=== PATIENT | female | born 2000 | race African-American/Black ===

== ENCOUNTER 2023-02-10 20:27 | Observation (INO) | payer BC, SELFPAY ==
[2023-02-10 20:48] VITALS: BP 131/81; PULSE 99
[2023-02-10 20:49] VITALS: TEMP 35.7
[2023-02-10 21:34] LABS: Bilirubin Urine NEGATIVE (NEGATIVE); Blood Urine SMALL (NEGATIVE); Clarity Urine CLEAR (CLEAR); Color Urine YELLOW (YELLOW); Glucose Urine UA NEGATIVE (NEGATIVE); Ketones Urine TRACE mg/dL (NEGATIVE); Leukocyte Esterase Urine NEGATIVE (NEGATIVE); Nitrite Urine NEGATIVE (NEGATIVE); Protein Urine TRACE mg/dL (NEG/TRACE); Specific Gravity Urine 1.025 (1.005-1.025); Urobilinogen Urine 0.2 EU/dL (0.2-1.0); pH Urine 6.5 (5.0-9.0)
[2023-02-10 21:42] LABS: Urine Microscopic Indicated YES
[2023-02-10 21:45] LABS: Bacteria Urine TRACE #/HPF (NONE SEEN); Mucus Urine NONE SEEN (NONE SEEN); RBC Urine 0-2 #/HPF (0-2); Squamous Epithelial Cell Urine FEW #/LPF (NONE/RARE); WBC Urine NONE SEEN #/HPF (NONE SEEN)
[2023-02-10 21:46] LABS: Calcium Oxalate Crystals Urine MODERATE; Cast Seen? NONE SEEN #/LPF (NONE SEEN); Crystals Seen? Seen #/HPF (None Seen)
[2023-02-10 21:47] LABS: Urine Culture Indicated NO
== END 2023-02-10 22:47 | disposition home or self-care (01) ==
PROVIDERS: Admitting Provider Obstetrics & Gynecology; PCP Family Medicine; Visit Provider Obstetrics & Gynecology
DX: O36.8190 Decreased fetal movements, unspecified trimester, not applicable or unspecified (principal); O46.90 Antepartum hemorrhage, unspecified, unspecified trimester; Z3A.00 Weeks of gestation of pregnancy not specified
CPT/HCPCS: 59025; 81003; 81015; G0378; G0379

== ENCOUNTER 2023-03-04 17:13 | Observation (INO) | payer BC, SELFPAY ==
[2023-03-04] VITALS (14 sets, daily range): BP systolic 120–152; BP diastolic 58–80; PULSE 86–101; TEMP 36.6
[2023-03-04 18:37] LABS: Hematocrit 31.9 % (36.0-48.0); Hemoglobin 10.5 g/dL (12.0-16.0); Mean Corpuscular HGB Conc 32.9 g/dL (29.9-35.2); Mean Corpuscular Hemoglobin 27.1 pg (26.7-34.0); Mean Corpuscular Volume 82.2 fL (81.0-99.0); Mean Platelet Volume 9.9 fL (9.5-13.5); Platelet Count 352 10^3/uL (150-450); Red Blood Count 3.88 10^6/uL (4.20-5.40); Red Cell Distribution Width 14.6 % (11.0-15.0); White Blood Count 11.3 10^3/uL (4.0-11.0)
[2023-03-04] MEDS: DINOPROSTONE 10 MG VAG INSERT.ER VAGINAL (18:46)
[2023-03-04 18:49] LABS: Creatinine Urine Random 71.63 mg/dL (20.00-300.00); Protein Creatinine Ratio Urine 0.24; Total Protein Urine Random 17.3 mg/dL (<=11.9)
[2023-03-04 18:50] LABS: Alanine Aminotransferase 14 U/L (14-59); Albumin Globulin Ratio 0.6; Albumin Level 2.6 g/dL (3.4-5.0); Alkaline Phosphatase 156 U/L (46-116); Anion Gap 14.6; Aspartate Amino Transferase 15 U/L (15-37); BUN Creatinine Ratio 6.2; Bilirubin Total 0.3 mg/dL (0.2-1.0); Carbon Dioxide 20.8 mmol/L (21.0-32.0); Chloride 105 mmol/L (98-107); Estimated GFR (African America >60 (>=60); Estimated GFR (Non-African Ame >60 (>=60); Globulin 4.1 g/dL; Glucose 93 mg/dL (74-106); Lactate Dehydrogenase 169 U/L (81-234); Potassium 3.4 mmol/L (3.5-5.1); Sodium 137 mmol/L (136-145); Total Protein 6.7 g/dL (6.4-8.2); Uric Acid 4.4 mg/dL (2.6-6.0)
[2023-03-04 18:54] LABS: Amphetamine Screen Urine NEGATIVE (NEGATIVE); Barbiturates Screen Urine NEGATIVE (NEGATIVE); Benzodiazepines Screen Urine NEGATIVE (NEGATIVE); Buprenorphine Screen Urine NEGATIVE (NEGATIVE); Cannabinoid Screen Urine NEGATIVE (NEGATIVE); Cocaine Screen Urine NEGATIVE (NEGATIVE); Methadone Screen Urine NEGATIVE (NEGATIVE); Methamphetamines Screen Urine NEGATIVE (NEGATIVE); Opiate Screen Urine NEGATIVE (NEGATIVE); Oxycodone Screen Urine NEGATIVE (NEGATIVE); Phencyclidine Screen Urine NEGATIVE (NEGATIVE); Tricyclic Antidepressant Urine NEGATIVE (NEGATIVE)
--- NOTE | 2023-03-04 19:29 | PC.NURSE ---
IV attempt x2 per this RN without success. Smita Peterson in attempts IV x2 as well without success. Iv to right arm achieved on 3rd attempt, Labs attempted to be drawn off site without success. Lab in for lab draw. 1851-cervidil explained verbalizes understanding. placed as ordered. cervix cl thick, high. Pt toleraes well. Pt reports pain to IV site requests d/c. Pt also c/o BOYER, requests tylenol. 1856-Sofia Bal called, no answer. Voicemail left to return call to [facility]. 1899-Report to Lianet WESTON . Care relinquished.
[2023-03-04] MEDS: ACETAMINOPHEN 500 MG TABLET 1000 MG PO (21:40)
[2023-03-04] MEDS: ZOLPIDEM TARTRATE 5 MG TABLET PO (21:40)
[2023-03-05] VITALS (23 sets, daily range): BP systolic 104–149; BP diastolic 56–94; PULSE 85–104; RESP 18–20; TEMP 36.6–37.9
--- NOTE | 2023-03-05 07:09 | W.PC.ACHO ---
Registration Status: ADM IN Primary Language: Thai Preferred Language: Thai Active Medications Generic Name Dose Route Start Last Admin Trade Name Dorothy PRN Reason Stop Dose Admin Acetaminophen 1,000 mg 03/04/23 20:56 03/04/23 21:40 Acetaminophen 500 Mg Tablet PO 1,000 mg Q6H PRN Administration Headache Carboprost Tromethamine 250 mcg 03/04/23 17:17 Carboprost Tromethamine 250 Mcg/Ml 1 Ml Vial IM Q15M PRN Bleeding Sodium Chloride 1,000 mls @ 125 mls/hr 03/05/23 04:45 Sodium Chloride 0.9% 1,000 Ml IV .Q8H HARISH Oxytocin 10 unit/ Sodium 501 mls @ 6.012 mls/hr 03/05/23 04:45 Chloride IV Q24H HARISH 2 MILLIUNIT/MIN Methylergonovine Maleate 0.2 mg 03/04/23 17:17 Methylergonovine Maleate 0.2 Mg Tablet PO Q4H PRN Uterine Contractility/Contract Methylergonovine Maleate 0.2 mg 03/04/23 17:17 Methylergonovine Maleate 0.2 Mg/Ml Ampule IM ONCE PRN Uterine Contractility/Contract Ondansetron HCl 4 mg 03/04/23 17:17 Ondansetron Pf 4 Mg/2 Ml Vial IV Q6H PRN Nausea And Vomiting Ondansetron HCl 4 mg 03/04/23 17:17 Ondansetron 4 Mg Rapdis Tablet SL Q6H PRN Nausea And Vomiting Oxytocin 10 unit 03/05/23 04:42 Oxytocin 100 Unit/10 Ml Vial IM ONCE PRN Uterine Bleeding Zolpidem Tartrate 5 mg 03/04/23 20:58 03/04/23 21:40 Zolpidem Tartrate 5 Mg Tablet PO 5 mg BEDTIME PRN Administration Insomnia Diet Category Date Time Status Regular Consistency Diet Diet 03/04/23 Dinner Active IV Insertion/Site Date of IV Line Insertion [20g 03/04/23 right Hand] Date of IV Line Insertion [20g 03/04/23 ] IV Insertion Time [20g right 19:42 Hand] Neurology Patient orientation (short person,place,time,situation list)
[2023-03-05] MEDS: DINOPROSTONE 10 MG VAG INSERT.ER VAGINAL (07:26)
--- NOTE | 2023-03-05 08:04 | PM.OBHP ---
OB - H&P: HPI History of Present Illness Chief complaint: INDUCTION : 1 Para: 0 Gestational age based on last menstrual period: 40 weeks today Indications for induction: other Narrative: patient desires elective IOL History of Present Dating criteria: LMP confirmed by 1st trimester US care: good care Ultrasounds: normal 1st trimester US and normal mid trimester US Medical complications OB: other (history of migraines, failed 1 hr gtt passed 3 hr gtt ) Labs Blood type: A (-) negative Rubella: immune RPR/VDLR: nonreactive GBS status: negative HBsAG: negative Review of Systems ROS Status of ROS 10 or more systems reviewed and unremarkable except as noted in history and below Psychiatric Reports: anxiety Meds Home Medications and Allergies Allergies Allergy/AdvReac Type Severity Reaction Status Date / Time cefdinir Allergy Intermediate Rash Verified 03/04/23 18:46 Exam Constitutional Vital Signs, click to edit/add: Last Vital Signs Temp 97.9 F 03/04/23 17:45 Pulse 89 03/05/23 07:47 BP 131/75 H 03/05/23 07:47 Documenting provider has reviewed patient's vital signs: yes Common normals: no apparent distress General appearance: cooperative Nutritional appearance: overweight Orientation/consciousness: Yes awake Respiratory Common normals: normal respiratory effort Effort & inspection: able to speak in complete sentences Auscultation: clear to auscultation bilaterally Cardio Common normals: regular rate and regular rhythm Rhythm: regular rhythm GI Common normals: Normal to inspection, nondistended, normoactive bowel sounds present Inspection: normal to inspection Auscultation: normoactive bowel sounds Palpation: soft Common normals: no CVA tenderness Manual OB Exam: deferred Back & Pelvis Common normals: no CVA tenderness Thoracic spine/upper back: normal to inspection Lumbar spine/lower back: normal to inspection Extremity Common normals: normal to inspection Neuro Common normals: oriented x3 Sensorium/orientation: awake, alert, oriented to person, oriented to place and oriented to time Speech: speech normal Psych Common normals: mental status grossly normal, thought process normal, cooperative and affect normal Attitude: calm Activity/motor behavior: appropriate eye contact Speech: normal speech Results Labs Labs: Short CBC 03/04/23 Range/Units 18:25 WBC 11.3 H (4.0-11.0) 10^3/uL Hgb 10.5 L (12.0-16.0) g/dL Hct 31.9 L (36.0-48.0) % Plt Count 352 (150-450) 10^3/uL BMP 03/04/23 18:25 Sodium 137 Potassium 3.4 L Chloride 105 Carbon Dioxide 20.8 L BUN 4.0 L Creatinine 0.65 Glucose 93 Calcium 9.0 Liver Function 03/04/23 Range/Units 18:25 Total Bilirubin 0.3 (0.2-1.0) mg/dL AST 15 (15-37) U/L ALT 14 (14-59) U/L Alkaline Phosphatase 156 H (46-116) U/L Albumin 2.6 L (3.4-5.0) g/dL OB - A/P Assessment and Plan (1) Term : Plan continue cervidil induction, routine labor orders
[2023-03-05] MEDS: ACETAMINOPHEN 500 MG TABLET 1000 MG PO (15:48)
--- NOTE | 2023-03-05 17:30 | PC.NURSE ---
Legal Records Manager discussed plan of care with pt. Much support given and education regarding pt. not being responsive to Cervidil and her body just not being quite ready, as well as well being and comfort measures for the upcoming days. Pt. knows when to return to hospital and educated on kick counts.
--- NOTE | 2023-03-05 17:35 | PC.NURSE ---
Pt. was an inpatient induction, however failed and is being sent home.
== END 2023-03-05 16:00 | disposition home or self-care (01) ==
PROVIDERS: Admitting Provider Midwife; PCP Family Medicine; Visit Provider Midwife
DX: O61.0 Failed medical induction of labor (principal); Z3A.40 40 weeks gestation of pregnancy
CPT/HCPCS: 36415; 80053; 80307; 82570; 83615; 84156; 84550; 85027; 86850; 86900; 86901; G0378; G0379

== ENCOUNTER 2023-03-08 05:26 | Inpatient (IN) | payer BC, SELFPAY ==
[2023-03-08] VITALS (21 sets, daily range): BP systolic 106–147; BP diastolic 50–96; PULSE 77–101; RESP 15–22; TEMP 36.3–36.6; O2SAT 95–98
[2023-03-08 06:10] LABS: Basophils Percent Auto 0.2 % (0.2-2.0); Eosinophils Percent Auto 0.3 % (0.9-7.0); Hematocrit 31.8 % (36.0-48.0); Hemoglobin 10.4 g/dL (12.0-16.0); Immature Granulocytes Abs Auto 0.08 10^3/uL (0.00-0.03); Immature Granulocytes Pct Auto 0.8 % (0.0-0.5); Lymphocytes Absolute Auto 2.5 10^3/uL (1.2-3.8); Lymphocytes Percent Auto 24.1 % (20.5-60.0); Mean Corpuscular HGB Conc 32.7 g/dL (29.9-35.2); Mean Corpuscular Hemoglobin 26.9 pg (26.7-34.0); Mean Corpuscular Volume 82.4 fL (81.0-99.0); Monocytes Absolute Auto 0.8 10^3/uL (0.3-0.8); Monocytes Percent Auto 7.8 % (1.7-12.0); Neutrophils Percent Auto 66.8 % (43.0-75.0); Platelet Count 371 10^3/uL (150-450); Red Blood Count 3.86 10^6/uL (4.20-5.40); Red Cell Distribution Width 14.6 % (11.0-15.0); White Blood Count 10.5 10^3/uL (4.0-11.0)
[2023-03-08 06:56] LABS: Bilirubin Urine NEGATIVE (NEGATIVE); Blood Urine SMALL (NEGATIVE); Clarity Urine CLEAR (CLEAR); Color Urine LT. YELLOW (YELLOW); Glucose Urine UA NEGATIVE (NEGATIVE); Ketones Urine >=80 mg/dL (NEGATIVE); Leukocyte Esterase Urine NEGATIVE (NEGATIVE); Nitrite Urine NEGATIVE (NEGATIVE); Protein Urine NEGATIVE (NEG/TRACE); pH Urine 6.5 (5.0-9.0)
[2023-03-08 07:15] LABS: Amphetamine Screen Urine NEGATIVE (NEGATIVE); Barbiturates Screen Urine NEGATIVE (NEGATIVE); Benzodiazepines Screen Urine NEGATIVE (NEGATIVE); Buprenorphine Screen Urine NEGATIVE (NEGATIVE); Cannabinoid Screen Urine NEGATIVE (NEGATIVE); Cocaine Screen Urine NEGATIVE (NEGATIVE); Methadone Screen Urine NEGATIVE (NEGATIVE); Methamphetamines Screen Urine NEGATIVE (NEGATIVE); Opiate Screen Urine NEGATIVE (NEGATIVE); Oxycodone Screen Urine NEGATIVE (NEGATIVE); Phencyclidine Screen Urine NEGATIVE (NEGATIVE); Tricyclic Antidepressant Urine NEGATIVE (NEGATIVE)
[2023-03-08] MEDS: LACTATED RINGER'S SOLUTION 1,000 ML 125 ML IV ×2 (07:19→08:15)
[2023-03-08] MEDS: CLINDAMYCIN PHOSPHATE/D5W 900 MG/50 ML PIGGYBACK 100 MG IV (07:22)
[2023-03-08 07:25] LABS: WBC Urine NONE SEEN #/HPF (NONE SEEN)
[2023-03-08 07:26] LABS: Bacteria Urine NONE SEEN #/HPF (NONE SEEN); Mucus Urine SMALL (NONE SEEN); Squamous Epithelial Cell Urine FEW #/LPF (NONE/RARE)
--- NOTE | 2023-03-08 07:26 | P.OBHP_ITS ---
OB - H&P: HPI History of Present Illness Chief complaint: C SECTION : 1 Para: 0 Gestational age based on last menstrual period: 40.3 History of Present Dating criteria: LMP confirmed by 1st trimester US care: good care Ultrasounds: normal 1st trimester US and normal mid trimester US complications: other Medical complications OB: none Labs Blood type: A (+) positive Rubella: immune RPR/VDLR: nonreactive GBS status: negative HBsAG: negative Review of Systems ROS Status of ROS 10 or more systems reviewed and unremarkable except as noted in history and below PFSH PFSH Family History (Updated 03/08/23 @ 05:45 by Eric Simms) Mother Family history of diabetes mellitus Grandmother Family history of diabetes mellitus Social History (Updated 03/08/23 @ 05:50 by Eric Simms) Within the past year, how often did you have a drink containing alcohol: never Within the past year, how often did you have six or more drinks on one occasion: never Score interpretation: A score less than 3 is consistent with normal alcohol consumption. 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 Highest level of school completed/degree received: some college, no degree Are you now , , , , never or living with a partner: never In a typical week, how many times do you talk on the telephone with family, friends, or neighbors: 3 or more times per week How often do you get together with friends or relatives: 3 or more times per week How often do you attend taoist or jainism services: never Do you belong to any clubs or organizations such as taoist groups unions, fraternal or athletic groups, or school groups: no Total score: 1 Score interpretation: A score of less than or equal to 1 indicates the most socially isolated. Little interest or pleasure in doing things: not at all Feeling down, depressed, or hopeless: not at all Feel stressed/tense/nervous/anxious/difficulty sleeping: to some extent Life stressors: other Life stressor details: c/s delivery Do you think of yourself as: lesbian/harrington/homosexual Gender Identity: female Meds Home Medications and Allergies Home Medications Medication Instructions Recorded Confirmed Type No Known Home Medications 03/06/23 03/08/23 History Allergies Allergy/AdvReac Type Severity Reaction Status Date / Time cefdinir Allergy Intermediate Rash Verified 03/04/23 18:46 Exam Constitutional Vital Signs, click to edit/add: Last Vital Signs Temp 97.7 F 03/08/23 05:42 Pulse 96 H 03/08/23 06:13 Resp 18 03/08/23 05:42 BP 136/78 H 03/08/23 06:13 Documenting provider has reviewed patient's vital signs: yes Common normals: no apparent distress General appearance: cooperative and comfortable Orientation/consciousness: Yes awake HENMT Common normals: normocephalic Eye Common normals: PERRL General eye: normal appearance of both eyes Lymph Lymphatic: no lymphadenopathy noted Chest Common normals: inspection of chest normal Respiratory Common normals: normal respiratory effort Effort & inspection: able to speak in complete sentences Cardio Common normals: regular rate, regular rhythm and no murmurs Rate: regular rate Rhythm: regular rhythm GI Inspection: normal to inspection Auscultation: normoactive bowel sounds Palpation: soft and other (gravid uterus ) Common normals: no CVA tenderness Back & Pelvis Common normals: no CVA tenderness Neuro Common normals: oriented x3 Sensorium/orientation: awake, alert, oriented to person, oriented to place and oriented to time Results Labs Labs: Short CBC 03/08/23 Range/Units 06:00 WBC 10.5 (4.0-11.0) 10^3/uL Hgb 10.4 L (12.0-16.0) g/dL Hct 31.8 L (36.0-48.0) % Plt Count 371 (150-450) 10^3/uL Urine 03/08/23 Range/Units 06:00 Urine Color Lt. yellow (YELLOW) Urine Clarity Clear (CLEAR) Urine pH 6.5 (5.0-9.0) Ur Specific [place] 1.020 (1.005-1.025) Urine Protein Negative (NEG/TRACE) mg/dL Urine Glucose (UA) Negative (NEGATIVE) mg/dL OB - A/P Assessment and Plan (1) Term : Plan elective primary section
[2023-03-08 07:27] LABS: Amorphous Sediment Urine FEW; Crystals Seen? Seen #/HPF (None Seen)
[2023-03-08] MEDS: ONDANSETRON PF 4 MG/2 ML VIAL IV (07:28)
[2023-03-08] MEDS: FAMOTIDINE/PF 20 MG/2 ML VIAL IV (07:28)
--- NOTE | 2023-03-08 07:38 | W.PC.ACHO ---
Registration Status: ADM IN Primary Language: Malaysian Preferred Language: Malaysian Active Medications Generic Name Dose Route Start Last Admin Trade Name Freq PRN Reason Stop Dose Admin Lactated Ringer's 1,000 mls @ 125 mls/hr 03/08/23 05:30 03/08/23 07:19 Lactated Ringers IV 125 mls/hr .Q8H HARISH Administration Ondansetron HCl 4 mg 03/08/23 07:24 03/08/23 07:28 Ondansetron Pf 4 Mg/2 Ml Vial IV 4 mg Q4H PRN Administration Nausea And Vomiting Diet Category Date Time Status NPO Diet Diet 03/08/23 05:29 Active Consults Category Date Time Status Consult to Anesthesiology Routine Cons 03/08/23 Ordered IV Insertion/Site Date of IV Line Insertion [20g 03/08/23 right Hand] IV Insertion Time [20g right 06:00 Hand] Neurology Patient orientation (short person,place,time,situation list) [place] coma scale total score 15 Catheter Urinary Catheter Date of 03/08/23 Insertion [Urethral] Urinary Catheter Time of 06:35 Insertion [Urethral]
--- NOTE | 2023-03-08 08:47 | P.ON_ITS ---
Brief Operative Note Date of procedure: 03/08/23 Pre-op diagnosis: iup at 40wks, failed induction times 2, pt requesting elective sec Post-op diagnosis: same Procedure: PROCEDURE: Patient was taken back to the Operating Room where she was given a spinal anesthesia with Duramorph without difficulty. She was prepped and draped in the normal sterile fashion. A Pfannenstiel skin incision was then made 2 cm above the symphysis pubis and carried down to underlying rectus fascia using a Bovie. The fascia was incised in the midline and extended laterally using Padilla scissors. Two Kareem clamps were placed on the superior aspect of the fascia and dissected off the underlying rectus muscles. The same was performed on the inferior aspect as well. The muscles were then in the midline. Peritoneum was identified and entered bluntly. The peritoneum was then extended superiorly and inferiorly with good visualization of the bladder. The bladder blade was inserted. A low transverse incision was made on the patient's uterus and extended laterally digitally. The infant was then delivered atraumatically after the bladder blade was removed in the cephalic position. The cord was clamped and cut. Cord blood was obtained. The was handed off to awaiting team. The patient's placenta was spontaneously delivered. The uterus was then exteriorized. The uterus was cleared of all clots and debris. The bladder blade was reinserted. The patient's uterine incision was closed using #0 Vicryl in a running lock fashion. Excellent hemostasis was assured. The uterus was then returned to the patient's abdomen. The patient's abdomen was copiously irrigated using warm saline. Peritoneal gutters were cleared of all clots and debris. Again excellent hemostasis was assured. The patient's peritoneum was closed using 3-0 Vicryl in a running fashion. The patient's fascia was closed using #0 Vicryl in a running fashion. The patient's skin was closed using 4-0 Vicryl subcuticularly. The patient tolerated the procedure well. Sponge, lap, and needle counts were correct x2. The patient was taken to the Recovery Room in stable condition. Anesthesia: spinal Surgeon: Umesh Maya Planning Management It Specialist: ERIN SHIELDS Estimated blood loss (mL): 575 Pathology: other (placeta) Condition: stable Disposition: floor
--- NOTE | 2023-03-08 08:49 | PM.OBPRCCS ---
Procedure Pre-op/Post-op diagnoses: Pre-Op/Post-Op Diagnoses Operation Date: 03/08/23 07:30 <No data on this case meets the specified criteria> Procedure: Procedures Operation Date: 03/08/23 07:30 Actual Procedure Side Surgeon p Not Applicable Umesh Maya DO [employer] Science Teacher: ERIN SHIELDS Estimated blood loss (mL): 575 Disposition: floor Anesthesia type: Spinal
--- NOTE | 2023-03-08 09:11 | PM.OBPRCCS ---
Procedure Pre-op/Post-op diagnoses: Pre-Op/Post-Op Diagnoses Operation Date: 03/08/23 07:30 <No data on this case meets the specified criteria> Procedure: Procedures Operation Date: 03/08/23 07:30 Actual Procedure Side Surgeon p Not Applicable Umesh Maya DO Disposition: floor Narrative: I first assisted Dr Maya with elective primary section. I assisted as directed by physician. I independently closed the SQ layer with 3-0 vicryl without difficulty. I then independently closed the incision with 4-0 vicryl on a Edgardo needle without difficulty. Hemostasis noted at the end of the procedure. Patient tolerated procedure well.
--- NOTE | 2023-03-08 09:15 | PC.NURSE ---
125CC CLEAR YELLOW URINE
--- NOTE | 2023-03-08 10:25 | PC.NURSE ---
infant remains skin to skin, pt denies pain , fresh ice water given and juice
--- NOTE | 2023-03-08 10:26 | PC.NURSE ---
feeds infant bottle. denies pain or needs
[2023-03-08] MEDS: DIPHENHYDRAMINE HCL 50 MG/ML (1ML) VIAL 25 MG IV (11:33)
--- NOTE | 2023-03-08 15:19 | PC.NURSE ---
pt request ambulation. Assisted up to BR, maki explained and performed per self. Moderate amount of rubra noted. Loo remains in, emptied for approx 300mls cali urine. pt requests to sit in chair. Assisted to chair and tolerates well. denies pain or needs at this time.
[2023-03-08] MEDS: DIPHENHYDRAMINE HCL 50 MG/ML (1ML) VIAL (17:19)
[2023-03-08] MEDS: CLINDAMYCIN PHOSPHATE/D5W 900 MG/50 ML PIGGYBACK 125 MG IV (17:25)
--- NOTE | 2023-03-08 18:51 | PC.NURSE ---
approx 200mls emptied from riddle, then d/c'd per pt request. pt tolerates well, pericare per self and returns to bed.
[2023-03-08] MEDS: KETOROLAC TROMETHAMINE 30 MG/ML VIAL IVP (19:06)
[2023-03-08] MEDS: ENOXAPARIN SODIUM 40 MG/0.4 ML SYRINGE SUBQ (20:59)
[2023-03-09] VITALS (7 sets, daily range): BP systolic 122–147; BP diastolic 62–93; PULSE 84–87; RESP 18; TEMP 36.2–36.8
[2023-03-09] MEDS: SIMETHICONE 80 MG TAB.CHEW PO ×2 (01:07→07:28)
[2023-03-09] MEDS: KETOROLAC TROMETHAMINE 30 MG/ML VIAL IVP ×4 (01:08→20:21)
[2023-03-09 06:40] LABS: Basophils Percent Auto 0.1 % (0.2-2.0); Eosinophils Percent Auto 0.1 % (0.9-7.0); Hematocrit 25.8 % (36.0-48.0); Hemoglobin 8.4 g/dL (12.0-16.0); Immature Granulocytes Abs Auto 0.08 10^3/uL (0.00-0.03); Immature Granulocytes Pct Auto 0.6 % (0.0-0.5); Lymphocytes Absolute Auto 2.8 10^3/uL (1.2-3.8); Lymphocytes Percent Auto 19.8 % (20.5-60.0); Mean Corpuscular HGB Conc 32.6 g/dL (29.9-35.2); Mean Corpuscular Hemoglobin 27.5 pg (26.7-34.0); Mean Corpuscular Volume 84.3 fL (81.0-99.0); Mean Platelet Volume 10.1 fL (9.5-13.5); Monocytes Absolute Auto 1.1 10^3/uL (0.3-0.8); Monocytes Percent Auto 7.6 % (1.7-12.0); Neutrophils Absolute Auto 10.2 10^3/uL (1.4-6.5); Neutrophils Percent Auto 71.8 % (43.0-75.0); Platelet Count 339 10^3/uL (150-450); Red Blood Count 3.06 10^6/uL (4.20-5.40); Red Cell Distribution Width 14.8 % (11.0-15.0); White Blood Count 14.3 10^3/uL (4.0-11.0)
--- NOTE | 2023-03-09 07:50 | W.PC.ACHO ---
Registration Status: ADM IN Primary Language: New Zealander Preferred Language: New Zealander report given to Jamilah Mendoza RN Active Medications Generic Name Dose Route Start Last Admin Trade Name Freq PRN Reason Stop Dose Admin Al Hydroxide/Mg Hydroxide 2,400 mg 03/08/23 08:45 Magnesium Hydroxide 2,400 Mg/10 Ml Oral.Susp PO Q6H PRN Dyspepsia Diphenhydramine HCl 25 mg 03/08/23 17:33 Diphenhydramine Hcl 50 Mg/Ml (1ml) Vial IV 03/09/23 17:33 Q6H PRN Itching Docusate Sodium 100 mg 03/09/23 09:00 Docusate Sodium 100 Mg Capsule PO BID HARISH Enoxaparin Sodium 40 mg 03/08/23 20:01 03/08/23 20:59 Enoxaparin Sodium 40 Mg/0.4 Ml Syringe SUBQ 40 mg Q24H HARISH Administration Lactated Ringer's 1,000 mls @ 125 mls/hr 03/08/23 05:30 03/08/23 08:15 Lactated Ringers IV 125 mls/hr .Q8H HARISH Administration Sodium Chloride 1,000 mls @ 125 mls/hr 03/08/23 08:45 Sodium Chloride 0.9% 1,000 Ml IV .Q8H HARISH Ibuprofen 800 mg 03/08/23 08:45 Ibuprofen 400 Mg Tablet PO Q8H PRN Pain Ketorolac Tromethamine 30 mg 03/08/23 08:45 03/09/23 07:28 Ketorolac Tromethamine 30 Mg/Ml Vial IVP 03/10/23 08:46 30 mg Q6H PRN Administration Pain Ondansetron HCl 4 mg 03/08/23 08:45 Ondansetron Pf 4 Mg/2 Ml Vial IV Q6H PRN Nausea And Vomiting Ondansetron HCl 4 mg 03/08/23 08:45 Ondansetron 4 Mg Rapdis Tablet PO Q6H PRN Nausea And Vomiting Oxycodone/Acetaminophen 1 each 03/08/23 08:45 Oxycodone Hcl/Acetaminophen 5-325 Mg Tablet PO Q4H PRN Pain Oxycodone/Acetaminophen 2 each 03/08/23 08:45 Oxycodone Hcl/Acetaminophen 5-325 Mg Tablet PO Q4H PRN Pain Senna 17.2 mg 03/08/23 20:00 Sennosides 8.6 Mg Tablet PO QHS PRN Constipation Simethicone 80 mg 03/08/23 08:45 03/09/23 07:28 Simethicone 80 Mg Tab.Chew PO 80 mg QID PRN Administration Abdominal Distention Diet Category Date Time Status Regular Consistency Diet Diet 03/08/23 Dinner Active Respiratory Lung sounds [Bilateral clear Throughout] Lung sounds [Bilateral clear Throughout] Lung sounds [Bilateral clear Throughout] Lung sounds [Bilateral clear Throughout] Lung sounds [Bilateral clear Throughout] Lung sounds [Bilateral clear Throughout] Pulse Oximetry 95 Pulse Oximetry 95 Pulse Oximetry 96 Pulse Oximetry 97 Pulse Oximetry 97 Pulse Oximetry 97 Pulse Oximetry 98 Pulse Oximetry 96 Pulse Oximetry 97 Pulse Oximetry 97 Oxygen Delivery Method Room Air Oxygen Delivery Method Room Air Oxygen Delivery Method Room Air Oxygen Delivery Method Room Air Oxygen Delivery Method Room Air
--- NOTE | 2023-03-09 09:31 | PM.OBPN ---
OB - PN: Subj Subjective Patient comments: pain well controlled and other Exam Narrative Exam Narrative: pt is 1 day post op, pp for elective section. pt c/o right shoulder pain, and states she was told it was from the gas pain you can get from surgery Constitutional Vital Signs, click to edit/add: Last Vital Signs Temp 97.2 F L 03/09/23 01:05 Pulse 77 03/08/23 20:28 Resp 18 03/09/23 01:05 BP 122/62 H 03/09/23 01:05 Pulse Ox 95 03/08/23 09:29 O2 Del Method Room Air 03/09/23 01:05 Documenting provider has reviewed patient's vital signs: yes Common normals: no apparent distress General appearance: cooperative Orientation/consciousness: Yes awake, Yes oriented to person, Yes oriented to place and Yes oriented to time Eye Pupil: PERRL Chest Common normals: inspection of chest normal Respiratory Common normals: normal respiratory effort Auscultation: clear to auscultation bilaterally Cardio Common normals: regular rate and regular rhythm Rate: regular rate Rhythm: regular rhythm GI Common normals: Normal to inspection, nondistended, normoactive bowel sounds present Percussion: normal to percussion Common normals: no CVA tenderness Back & Pelvis Common normals: no CVA tenderness Thoracic spine/upper back: normal to inspection Extremity Common normals: normal to inspection Neuro Common normals: oriented x3 Sensorium/orientation: awake, alert, oriented to person, oriented to place and oriented to time Psych Common normals: mental status grossly normal Attitude: calm Speech: normal speech Results Labs Labs: Short CBC 03/09/23 Range/Units 06:27 WBC 14.3 H (4.0-11.0) 10^3/uL Hgb 8.4 L (12.0-16.0) g/dL Hct 25.8 L (36.0-48.0) % Plt Count 339 (150-450) 10^3/uL OB - PN: A/P Assessment and Plan (1) Term : Plan continue routine post /post op orders begin Ferrous sulfate 325 mg BID Plan - day: 1 Plan: routine postop care Time Spent with Patient Time: Total time spent is greater than 50% in coordination of care (as documented) at patient's floor/unit and/or counseling patient: Total time spent with greater than 50% in coordination of care (as documented) at patient's floor/unit and/or counseling patient: less than 15 minutes
[2023-03-09] MEDS: DOCUSATE SODIUM 100 MG CAPSULE PO ×2 (10:45→20:22)
[2023-03-09] MEDS: ACETAMINOPHEN 325 MG TABLET 650 MG PO (12:19)
[2023-03-09] MEDS: FERROUS SULFATE 325 MG TABLET PO ×2 (12:59→20:22)
--- NOTE | 2023-03-09 17:25 | PC.NURSE ---
0725-Toradol given as requested, and simethacone PO as ordered for gas pain. Plan of care reviewed. verbalizes understanding 0825-Dozing in bed. Denies pain or needs. to nursery for testing. 0930- returned to room. Pt remains in bed but awake . eats breakfast. denies needs 1045- to shower per self. incision care explained after dressing removal. verbalizes understanding. 1130-visitors in. This RN inspects incision an assists pt removing abdominal dressing. smal amount of dark maroon drainage noted. Tylenol 650 mg given PO as requested and ordered for incisional pain 10/26. 1220-Toradol 30mg IV given as requested and ordered. 1335-ambulating around room, denies needs 1400- eats lunch 1535-ambulating around room, changes infants clothes and diaper 1640-requests pain medication for incisional pain 1710-Assessed as charted. Vs as charted. Incision remains clean , slightly moist. dry
[2023-03-10] MEDS: KETOROLAC TROMETHAMINE 30 MG/ML VIAL IVP (05:46)
[2023-03-10] MEDS: IBUPROFEN 400 MG TABLET 800 MG PO (09:23)
--- NOTE | 2023-03-10 09:25 | PM.OBPN ---
OB - PN: Subj Subjective Patient comments: no complaints Exam Constitutional Vital Signs, click to edit/add: Last Vital Signs Temp 98.2 F 03/09/23 22:00 Pulse 87 03/09/23 22:00 Resp 18 03/09/23 22:00 BP 138/64 H 03/09/23 22:00 Pulse Ox 95 03/08/23 09:29 O2 Del Method Room Air 03/09/23 01:05 Documenting provider has reviewed patient's vital signs: yes Common normals: no apparent distress Chest Common normals: inspection of chest normal Respiratory Common normals: normal respiratory effort and clear to auscultation bilaterally Cardio Common normals: regular rate and regular rhythm GI Common normals: Normal to inspection, nondistended, normoactive bowel sounds present Extremity Common normals: no clubbing, cyanosis or edema and no calf tenderness OB - PN: A/P Assessment and Plan (1) Term : Plan - day: 2 Plan: routine postop care, discharge home and follow up 6 weeks Time Spent with Patient Time: Total time spent is greater than 50% in coordination of care (as documented) at patient's floor/unit and/or counseling patient: Total time spent with greater than 50% in coordination of care (as documented) at patient's floor/unit and/or counseling patient: less than 15 minutes
[2023-03-10 09:43] VITALS: BP 138/63; PULSE 80
[2023-03-10] MEDS: DOCUSATE SODIUM 100 MG CAPSULE PO (09:44)
[2023-03-10] MEDS: FERROUS SULFATE 325 MG TABLET PO (09:44)
[2023-03-10 09:45] VITALS: RESP 18; TEMP 36.8
--- NOTE | 2023-03-10 09:51 | PC.NURSE ---
At 0925 technical writer and editor retrieved two briefs per pt.'s request. Pt denies any further needs. Baby was resting comfortable on mom's upper body at this time. offered to return baby back to crib pt. declined.
--- NOTE | 2023-03-10 15:56 | PC.NURSE ---
d/c instructions given at length, follow up appts , medication prescriptions given, verbalizes understaging. PT declines adacel vaccine.
--- NOTE | 2023-03-15 | DS_ITS ---
DISCHARGE DATE: ??03/15/2023 PRIMARY DIAGNOSES: 1.? Intrauterine at 40 weeks. 2.? Failed induction x2. 3.? Patient requesting elective section. PROCEDURE:? Primary low transverse section. HOSPITAL COURSE:? As expected.? Please see chart for full details.? LABORATORY DATA:? Please see chart. COMPLICATIONS:? None. DISCHARGE CONDITION: ?Stable. CONSULTATION:? Anesthesia. DISCHARGE INSTRUCTIONS: 1.? Diet:? Regular. 2.? Medications: a.? Percocet 5/325 one to two p.o. every 4-6 hours p.r.n. pain. b.? Motrin 800 one p.o. every 8 hours p.r.n. pain. 3.? Followup in one week. Restrictions:? Pelvic rest for 6 weeks.? No heavy lifting.? May drive when pain free and no longer on narcotics. JAMISON
== END 2023-03-10 13:30 | disposition home or self-care (01) | DRG 787 ==
PROVIDERS: Admitting Provider Midwife; PCP Family Medicine; Visit Provider Obstetrics & Gynecology
PROC: 10D00Z1 Extraction of Products of Conception, Low, Open Approach (ICD-10-PCS; CPT 59514; principal; 2023-03-08 07:30)
DX: O48.0 Post-term pregnancy (principal); O99.354 Diseases of the nervous system complicating childbirth; O61.0 Failed medical induction of labor; Z3A.40 40 weeks gestation of pregnancy; O99.62 Diseases of the digestive system complicating childbirth; O99.214 Obesity complicating childbirth; Z37.0 Single live birth; K21.9 Gastro-esophageal reflux disease without esophagitis; G47.33 Obstructive sleep apnea (adult) (pediatric); Z88.1 Allergy status to other antibiotic agents; Z79.899 Other long term (current) drug therapy; Z83.3 Family history of diabetes mellitus
CPT/HCPCS: 36415; 51702; 59025; 80307; 81001; 85025; 86850; 86900; 86901; 94667; 96372; 96374; 96375; 96376

== ENCOUNTER 2023-03-11 08:45 | Outpatient (RCR) | payer BC, SELFPAY ==
[2023-03-11 16:58] VITALS: BP 137/80; PULSE 86; RESP 18; TEMP 36.8; O2SAT 97
--- NOTE | 2023-03-11 17:05 | PC.NURSE ---
Pt and 3 day old daughter arrive for follow up. Denies need. States this C/S thing is no joke States doing well, but incision tender and sore today. Steri Strips intact, no drainage noted. Edema noted above incision, no redness. Pt states it smells funny This creative services writer does not note foul odor at this time. Pt given 4x4 gauze to lay in skin fold to assist in moisture wicking. Discussed daily shower, holding abdomen up for air drying and/or cool blow dryer to aid in keeping incision dry. Will see [facility] on 03/14/2023 for incision check. Pt is bottle feeding by choice. reviewed breast care and use of green cabbage for easing engorgement. Verbalized understanding.
== END 2023-03-11 17:15 | disposition home or self-care (01) ==
LOC: FBCO 08:45
PROVIDERS: PCP Family Medicine; Visit Provider Midwife
DX: Z39.2 Encounter for routine postpartum follow-up (principal)

== ENCOUNTER 2023-03-14 23:47 | Observation (INO) | payer BC, SELFPAY ==
[2023-03-14 23:57] VITALS: BP 170/98; BP 175/95; PULSE 69; RESP 16; TEMP 36.3; O2SAT 99; BMI 48.0
[2023-03-15] VITALS (30 sets, daily range): BP systolic 133–208; BP diastolic 63–106; PULSE 59–79; RESP 11–18; TEMP 36.6–36.7; O2SAT 98–100
--- NOTE | 2023-03-15 00:06 | ECG_ITS ---
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
[2023-03-15] MEDS: LABETALOL HCL 20 MG/4 ML SYRINGE IVP (00:41)
[2023-03-15 00:43] LABS: Basophils Percent Auto 0.6 % (0.2-2.0); Eosinophils Percent Auto 0.3 % (0.9-7.0); Hematocrit 26.7 % (36.0-48.0); Hemoglobin 8.6 g/dL (12.0-16.0); Immature Granulocytes Abs Auto 0.05 10^3/uL (0.00-0.03); Immature Granulocytes Pct Auto 0.8 % (0.0-0.5); Lymphocytes Absolute Auto 1.5 10^3/uL (1.2-3.8); Lymphocytes Percent Auto 24.6 % (20.5-60.0); Mean Corpuscular HGB Conc 32.2 g/dL (29.9-35.2); Mean Corpuscular Hemoglobin 27.1 pg (26.7-34.0); Mean Corpuscular Volume 84.2 fL (81.0-99.0); Mean Platelet Volume 9.6 fL (9.5-13.5); Monocytes Absolute Auto 0.5 10^3/uL (0.3-0.8); Monocytes Percent Auto 8.5 % (1.7-12.0); Neutrophils Absolute Auto 4.1 10^3/uL (1.4-6.5); Neutrophils Percent Auto 65.2 % (43.0-75.0); Platelet Count 383 10^3/uL (150-450); Red Blood Count 3.17 10^6/uL (4.20-5.40); Red Cell Distribution Width 14.9 % (11.0-15.0); White Blood Count 6.3 10^3/uL (4.0-11.0)
--- NOTE | 2023-03-15 00:56 | ED_ITS ---
HPI - General Adult General Chief complaint: Headache Stated complaint: hypertension Time Seen by Provider: 03/15/23 00:13 Source: patient Mode of arrival: walk-in History of Present Illness HPI narrative: 22-year-old female who is one week status post delivery for failure to progress presents for evaluation of a headache, visual changes, elevated blood pressure and lower extremity swelling. She was seen by her grizzly worker earlier today and started on labetalol. She has only had one dose of it prior to arrival. She denies any seizure activity. She states that in her 40th week of it was noticed that she had protein in her urine and they were monitoring her blood pressure closely. It was not noted during her delivery or . that her blood pressure was elevated. She has no chest pain or shortness of breath. She denies any abdominal pain. She is not breast-feeding. Related Data Home Medications Medication Instructions Recorded Confirmed labetalol 200 mg tablet 200 mg PO Q12H 03/15/23 03/15/23 Previous Rx's Medication Instructions Recorded ibuprofen 800 mg tablet 800 mg PO Q8H PRN pain 14 days #40 03/10/23 tabs oxycodone-acetaminophen 5 mg-325 1 tab PO Q6H PRN pain 7 days #28 03/10/23 mg tablet (Percocet) tabs Allergies Allergy/AdvReac Type Severity Reaction Status Date / Time cefdinir Allergy Intermediate Rash Verified 03/04/23 18:46 Review of Systems ROS Status of ROS 10 or more systems reviewed and unremarkable except as noted in history and below PFSH PFSH Family History (Updated 03/08/23 @ 05:45 by Eric Simms) Mother Family history of diabetes mellitus Grandmother Family history of diabetes mellitus Social History (Updated 03/08/23 @ 05:50 by Eric Simms) Within the past year, how often did you have a drink containing alcohol: never Within the past year, how often did you have six or more drinks on one occasion: never Score interpretation: A score less than 3 is consistent with normal alcohol consumption. 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[employer] Highest level of school completed/degree received: some college, no degree Are you now , , , , never or living with a partner: never In a typical week, how many times do you talk on the telephone with family, friends, or neighbors: 3 or more times per week How often do you get together with friends or relatives: 3 or more times per week How often do you attend christianity or episcopal services: never Do you belong to any clubs or organizations such as christianity groups unions, fraternal or athletic groups, or school groups: no Total score: 1 Score interpretation: A score of less than or equal to 1 indicates the most socially isolated. Little interest or pleasure in doing things: not at all Feeling down, depressed, or hopeless: not at all Feel stressed/tense/nervous/anxious/difficulty sleeping: to some extent Life stressors: other Life stressor details: c/s delivery Do you think of yourself as: lesbian/harrington/homosexual Gender Identity: female Exam Narrative Exam Narrative: Nurses note and vital signs reviewed; She is afebrile with a normal pulse, normal respiratory rate, blood pressure is notably elevated at 175/95 General: Alert, nontoxic -[place]ian female nursing currently on the stretcher, no respiratory distress Skin: Warm, dry, no pallor noted. There is no rash noted. Head: Normocephalic, atraumatic Eye: Normal conjunctiva, Funduscopic attempted but his pupils are constricted, no photophobia noted Ears, Nose, Mouth, and Throat: oral mucosa is moist. Cardiovascular: Regular Rate and Rhythm S1-S2, no murmurs rubs or gallops appreciated, pulses are brisk and equal bilaterally Respiratory: Patient is in no distress, no accessory muscle use, lungs are clear to auscultation, no wheezing, rales or rhonchi Back: non-tender, no CVA tenderness bilaterally to percussion. GI: Normal bowel sounds, no tenderness to palpation, no masses appreciated. No rebound, guarding, or rigidity noted. Musculoskeletal: 2+ lower extremity edema Neurological: A&O x4, normal speech Psychiatric: Cooperative Constitutional Vital Signs, click to edit/add: Last Vital Signs Temp 97.3 F L 03/14/23 23:57 Pulse 69 03/15/23 00:40 Resp 12 03/15/23 00:40 BP 146/100 H 03/15/23 01:31 Pulse Ox 98 03/15/23 00:40 O2 Del Method Room Air 03/14/23 23:57 Course Vital Signs Vital signs: Vital Signs Temperature 97.3 F L 03/14/23 23:57 Pulse Rate 69 03/14/23 23:57 Respiratory Rate 16 03/14/23 23:57 Blood Pressure 175/95 H 03/14/23 23:57 Pulse Oximetry 99 03/14/23 23:57 Oxygen Delivery Method Room Air 03/14/23 23:57 Temperature 97.3 F L 03/14/23 23:57 Pulse Rate 69 03/15/23 00:40 Respiratory Rate 12 03/15/23 00:40 Blood Pressure 146/100 H 03/15/23 01:31 Pulse Oximetry 98 03/15/23 00:40 Oxygen Delivery Method Room Air 03/14/23 23:57 Medical Decision Making MDM Narrative Medical decision making narrative: This 22-year-old female who is one week after a delivery for failure to progress presents for evaluation of a headache, visual changes and lower extremity swelling. She was noted to have elevated blood pressure yesterday after one week follow-up with her grizzly worker. She was started on labetalol. it was recommended that she monitor her blood pressure and her symptoms of headache visual changes and lower extremity swelling. She is brought to the emergency department by her [id number] today for elevated blood pressure and global headache. The pressure was noted to be 175/95 upon arrival. Her neuro exam is normal. She has not had any seizures. She denies any abdominal pain besides where she had her . An IV was placed and she was medicated with 20 mg of IV labetalol. Her blood pressure came down initially to 158/98. it then came down further to 146/100. Her headache and visual changes have not resolved. Routine labs are reviewed. She has a normal white count. She is mildly anemic with a hemoglobin of 8.6 however she is one week . She does not appear to have any active hemorrhaging. She has normal electrolytes. She has a mild elevation in her alkaline phosphatase at 131 but the remainder of her liver function tests are normal. Coagulation studies are normal. Urine is positive for blood but negative for protein. In light of her headache, elevated blood pressure, visual changes and edema she will be admitted for preeclampsia. The case was discussed with Dr. Maya. He will admit her to labor and delivery start her on magnesium. He did not request that I give her any additional labetalol in the emergency department or start her on magnesium here. This was discussed with the patient who verbalizes understanding. She was medicated with the Percocet and ibuprofen she was discharged home on for relief of her headache. She otherwise remains hemodynamically and neurologically stable. Lab Data Lab results narrative: Labs are reviewed, the patient has a normal white count, she is mildly anemic with a hemoglobin of 8.6. She has a normal platelet count, coagulation studies are normal, liver function tests are normal with the exception of mildly elevated alkaline phosphatase, Urine is positive for blood but negative for protein Labs: Lab Results 03/15/23 03/15/23 Range/Units 00:31 01:00 WBC 6.3 (4.0-11.0) 10^3/uL RBC 3.17 L (4.20-5.40) 10^6/uL Hgb 8.6 L (12.0-16.0) g/dL Hct 26.7 L (36.0-48.0) % MCV 84.2 (81.0-99.0) fL MCH 27.1 (26.7-34.0) pg MCHC 32.2 (29.9-35.2) g/dL RDW 14.9 (11.0-15.0) % Plt Count 383 (150-450) 10^3/uL MPV 9.6 (9.5-13.5) fL Neut % (Auto) 65.2 (43.0-75.0) % Lymph % (Auto) 24.6 (20.5-60.0) % [place] % (Auto) 8.5 (1.7-12.0) % Eos % (Auto) 0.3 L (0.9-7.0) % Baso % (Auto) 0.6 (0.2-2.0) % Neut # (Auto) 4.1 (1.4-6.5) 10^3/uL Lymph # (Auto) 1.5 (1.2-3.8) 10^3/uL [place] # (Auto) 0.5 (0.3-0.8) 10^3/uL Eos # (Auto) 0.0 (0.0-0.7) 10^3/uL Baso # (Auto) 0.0 (0.0-0.1) 10^3/uL Abs Immat Gran (auto) 0.05 H (0.00-0.03) 10^3/uL Imm/Tot Granulo (auto) 0.8 H (0.0-0.5) % PT 10.7 (9.0-11.6) sec INR 1.01 APTT 32.6 (22.3-36.2) sec Sodium 138 (136-145) mmol/L Potassium 3.7 (3.5-5.1) mmol/L Chloride 105 (98-107) mmol/L Carbon Dioxide 22.0 (21.0-32.0) mmol/L Anion Gap 14.7 BUN 16.0 (7.0-18.0) mg/dL Creatinine 0.75 (0.55-1.02) mg/dL Est GFR ( Amer) >60 (>=60) Est GFR (Non-Af Amer) >60 (>=60) BUN/Creatinine Ratio 21.3 Glucose 83 (74-106) mg/dL Calcium 7.9 L (8.5-10.1) mg/dL Total Bilirubin 0.4 (0.2-1.0) mg/dL AST 6 L (15-37) U/L ALT <6 L (14-59) U/L Alkaline Phosphatase 131 H (46-116) U/L Total Protein 6.5 (6.4-8.2) g/dL Albumin 2.8 L (3.4-5.0) g/dL Globulin 3.7 g/dL Albumin/Globulin Ratio 0.8 Urine Color Yellow (YELLOW) Urine Clarity Clear (CLEAR) Urine pH 6.0 (5.0-9.0) Ur Specific [place] 1.020 (1.005-1.025) Urine Protein Negative (NEG/TRACE) mg/dL Urine Glucose (UA) Negative (NEGATIVE) mg/dL Urine Ketones Negative (NEGATIVE) mg/dL Urine Occult Blood Moderate A (NEGATIVE) Urine Nitrite Negative (NEGATIVE) Urine Bilirubin Negative (NEGATIVE) Urine Urobilinogen 0.2 (0.2-1.0) EU/dL Ur Leukocyte Esterase Trace A (NEGATIVE) Urine RBC 2-5 A (0-2) #/HPF Urine WBC 5-10 A (NONE SEEN) #/HPF Ur Squamous Epith Cells Rare (NONE/RARE) #/LPF Urine Crystals None seen (None Seen) #/HPF Urine Bacteria Small A (NONE SEEN) #/HPF Urine Casts None seen (NONE SEEN) #/LPF Urine Mucus None seen (NONE SEEN) Ur Culture Indicated? Yes Critical Care Time Critical Care Time Total Critical Care Time: 40 Attestation: . Discharge Plan Discharge Chief Complaint: Headache Clinical Impression: Pre-eclampsia Patient Disposition: Admitted as Observation Time of Disposition Decision: 02:05 Condition: Fair Prescriptions / Home Meds: No Action ibuprofen 800 mg tablet 800 mg PO Q8H PRN (Reason: pain) 14 Days Qty: 40 0RF oxycodone-acetaminophen [Percocet] 5-325 mg tablet 1 tab PO Q6H PRN (Reason: pain) 7 Days Qty: 28 0RF labetalol 200 mg tablet 200 mg PO Q12H Referrals: Shawn Fountain MD [Primary Care Provider] - 1 week
[2023-03-15 00:59] LABS: Alanine Aminotransferase <6 U/L (14-59); Albumin Globulin Ratio 0.8; Albumin Level 2.8 g/dL (3.4-5.0); Alkaline Phosphatase 131 U/L (46-116); Anion Gap 14.7; Aspartate Amino Transferase 6 U/L (15-37); BUN Creatinine Ratio 21.3; Bilirubin Total 0.4 mg/dL (0.2-1.0); Calcium 7.9 mg/dL (8.5-10.1); Chloride 105 mmol/L (98-107); Estimated GFR (African America >60 (>=60); Estimated GFR (Non-African Ame >60 (>=60); Globulin 3.7 g/dL; Glucose 83 mg/dL (74-106); Potassium 3.7 mmol/L (3.5-5.1); Sodium 138 mmol/L (136-145); Total Protein 6.5 g/dL (6.4-8.2)
[2023-03-15 01:00] LABS: INR 1.01; Partial Thromboplastin Time 32.6 sec (22.3-36.2); Prothrombin Time 10.7 sec (9.0-11.6)
[2023-03-15 01:10] LABS: Bilirubin Urine NEGATIVE (NEGATIVE); Blood Urine MODERATE (NEGATIVE); Clarity Urine CLEAR (CLEAR); Color Urine YELLOW (YELLOW); Glucose Urine UA NEGATIVE (NEGATIVE); Ketones Urine NEGATIVE (NEGATIVE); Leukocyte Esterase Urine TRACE (NEGATIVE); Nitrite Urine NEGATIVE (NEGATIVE); Protein Urine NEGATIVE (NEG/TRACE); Urobilinogen Urine 0.2 EU/dL (0.2-1.0)
[2023-03-15 01:15] LABS: Bacteria Urine SMALL #/HPF (NONE SEEN); Cast Seen? NONE SEEN #/LPF (NONE SEEN); Crystals Seen? None Seen #/HPF (None Seen); Mucus Urine NONE SEEN (NONE SEEN); Squamous Epithelial Cell Urine RARE #/LPF (NONE/RARE); Urine Culture Indicated YES
[2023-03-15] MEDS: IBUPROFEN 600 MG TABLET PO (02:09)
[2023-03-15] MEDS: MAGNESIUM SULFATE IN WATER 50 ML IV (02:59)
[2023-03-15] MEDS: 0.9 % SODIUM CHLORIDE 1,000 ML 50 ML IV (03:00)
[2023-03-15] MEDS: MAGNESIUM SULFATE IN WATER 40 GM/1,000 ML IV.SOLN IV ×2 (03:20→23:00)
--- NOTE | 2023-03-15 04:04 | PC.NURSE ---
Pt was admitted as observation from ER for hypertension/preeclampsia. She was see in Sofia Bal's office 03/14 for her 1 week follow up appointment. Her BP was elevated and she was started on labetalol p.o. in which she has reported there was no improvement in her BP readings. Steri strips were removed and pt was prescribed Clindamycin 150 mg p.o QID for an odor to her incision in the office. Her initial BP in [facility] was 157/94. Lungs were clear, pt reports having a BOYER and blurred spotty vision that started yesterday. She was treated for the BOYER in ER with Motrin and Percocet and reports some improvement. DTR's were prominent at 3 + upper extremities and 3 + in her lower extremities. Call is made to Dr Maya @ [phone]. He is aware of this pt from ER. This RN reports vitals and physical exam findings. Orders are obtained to start Magnesium. Give a 2 gram bolus then a maintenance dose of 2 gram/hr, Place additional IV, Pt may ambulate to bathroom as needed with I&Os. A riddle may be placed if she is unable to ambulate. Monitor BP's per magnesium protocol. Pt may have Motrin 800 mg p.o every 8 hours as needed and Percocet 5/325 mg p.o 1-2 tabs as needed, Calcium gluconate as anecdote at bedside, Seizure precautions. RN updates pt ob her plan of care and pt verbalizes understanding. Her infant is taken home by a family member. Magnesium 2 gram bolus is initiated at 0300 and verified by 2 RN's (this RN and Yasmine Berg RN). Once bolus is complete a 2gram/hr maintenance dose is started as ordered and verified by the same 2 RN's. Vitals and assessments are documented per protocol on paper form and can be found in the chart. Pt has scant rubra. Her incision is observed by this RN. An odor is present. There is about a 1 inch area that is noted to not be fully closed. It is moist and in an abdominal fold. Area is cleansed with sterile normal saline and dried thoroughly with 4x4 guaze placed in fold to keep the area dry. Pt does not have her antibiotic here at this time. RN will discuss with physician later today for orders on that. Molly pad is changed. Pt is given fresh water and call light.
--- NOTE | 2023-03-15 08:02 | PC.NURSE ---
plan of care reviewed with pt. verbalizes understanding. enc pt to rest. Pain medication requested by pt for BOYER 02/25. Percocet 2tabs PO given as ordered and requested. denies other needs at this time
[2023-03-15] MEDS: IBUPROFEN 400 MG TABLET 800 MG PO ×2 (09:18→19:11)
--- NOTE | 2023-03-15 09:25 | NUTR.NU ---
assisted up to BR to void.voids approx 1,000ml clear yellow urine. Tolerates well and returns to bed. reports BOYER 12/26 but requests Motrin. Given as ordered and requested. Plan of care reviewed and much reassurance given. denies other needs at this time. awaiting Dr. Maya to round
[2023-03-15] MEDS: LABETALOL HCL 200 MG TABLET PO ×2 (10:16→22:51)
--- NOTE | 2023-03-15 11:56 | P.OBPN_ITS ---
OB - PN: Subj Subjective Patient comments: no complaints, pain well controlled and other (HEADACHE MUCH IMPROVED WITH MOTRIN) [place] feeding status: exclusively bottle feeding Exam Constitutional Vital Signs, click to edit/add: Last Vital Signs Temp 98.0 F 03/15/23 07:25 Pulse 75 03/15/23 08:30 Resp 14 03/15/23 08:30 BP 160/87 H 03/15/23 08:30 Pulse Ox 98 03/15/23 00:40 O2 Del Method Room Air 03/14/23 23:57 Common normals: no apparent distress and well nourished General appearance: cooperative, comfortable and well kempt HENMT Common normals: normocephalic and head/scalp atraumatic Eye Common normals: PERRL Pupil: accommodation reflex normal Neck & C-Spine Common normals: full ROM Respiratory Common normals: normal respiratory effort Cardio Common normals: regular rate and regular rhythm GI Common normals: Normal to inspection, nondistended, normoactive bowel sounds present Back & Pelvis Common normals: no CVA tenderness Extremity Common normals: normal to inspection and full ROM Neuro Common normals: oriented x3 and CN's II-XII intact bilaterally Psych Common normals: mental status grossly normal and thought process normal Results Labs Labs: Short CBC 03/15/23 Range/Units 00:31 WBC 6.3 (4.0-11.0) 10^3/uL Hgb 8.6 L (12.0-16.0) g/dL Hct 26.7 L (36.0-48.0) % Plt Count 383 (150-450) 10^3/uL BMP 03/15/23 00:31 Sodium 138 Potassium 3.7 Chloride 105 Carbon Dioxide 22.0 BUN 16.0 Creatinine 0.75 Glucose 83 Calcium 7.9 L Liver Function 03/15/23 Range/Units 00:31 Total Bilirubin 0.4 (0.2-1.0) mg/dL AST 6 L (15-37) U/L ALT <6 L (14-59) U/L Alkaline Phosphatase 131 H (46-116) U/L Albumin 2.8 L (3.4-5.0) g/dL Urine 03/15/23 Range/Units 01:00 Urine Color Yellow (YELLOW) Urine Clarity Clear (CLEAR) Urine pH 6.0 (5.0-9.0) Ur Specific [place] 1.020 (1.005-1.025) Urine Protein Negative (NEG/TRACE) mg/dL Urine Glucose (UA) Negative (NEGATIVE) mg/dL OB - PN: A/P Assessment and Plan (1) Pre-eclampsia: (2) hypertension: Assessment and Plan: PATIENT WAS ADMITTED AFTER CS DELIVERY LAST SATURDAY WITH HYPERTENSION A/W HEADACHE AT 2 AM THIS DAY. PRESUMED POST TOXEMIA. MAGNESIUM WAS STARTED ALONG WITH LABETALOL 200 MG BID. SHE WAS STARTED ON CLINDAMYCIN FOR INCISIONAL DRAINAGE. SHE DOES NOT HAVE A EASLEY BECAUSE SHE IS DELIVERED AND ABLE TO VOID WITHOUT DIFFICULTY. BLOOD PRESSURES WELL CONTROLLED. IS EXCLUSIVELY BOTTLE FEEDING. Plan KEEP MAGNESIUM ON FOR 24 HOURS AND THEN DISCONTINUE. WILL GET CMP AND CBC AND URINE SPECIMEN FOR P:C RATION. CONTINUE LABETALOL. Time Spent with Patient Time: Total time spent is greater than 50% in coordination of care (as documented) at patient's floor/unit and/or counseling patient: Total time spent with greater than 50% in coordination of care (as documented) at patient's floor/unit and/or counseling patient: less than 15 minutes
[2023-03-15 13:06] LABS: Creatinine Urine Random 170.62 mg/dL (20.00-300.00); Protein Creatinine Ratio Urine 0.18; Total Protein Urine Random 30.6 mg/dL (<=11.9)
[2023-03-15] MEDS: 0.9 % SODIUM CHLORIDE 1,000 ML 75 ML IV (16:23)
[2023-03-15] MEDS: CLINDAMYCIN HCL 150 MG CAPSULE PO ×2 (19:10→22:51)
[2023-03-16 03:30] VITALS: BP 134/90; PULSE 61; RESP 18; TEMP 36.6
[2023-03-16] MEDS: IBUPROFEN 400 MG TABLET 800 MG PO (06:30)
[2023-03-16] MEDS: CLINDAMYCIN HCL 150 MG CAPSULE PO (06:30)
--- NOTE | 2023-03-16 07:13 | W.PC.ACHO ---
Registration Status: ADM TOM Primary Language: Preferred Language: Active Medications Generic Name Dose Route Start Last Admin Trade Name Freq PRN Reason Stop Dose Admin Calcium Gluconate 1,000 mg 03/15/23 02:31 Calcium Gluconate 1,000 Mg/10 Ml Vial IVP ONCE PRN magnesium toxicity Clindamycin HCl 150 mg 03/15/23 18:00 03/16/23 06:30 Clindamycin Hcl 150 Mg Capsule PO 150 mg QID HARISH Administration Magnesium Sulfate 40 gm in 1,000 mls @ 50 mls/hr 03/15/23 09:00 03/15/23 23:00 Magnesium Sulf 40 G/1,000 Ml IV 50 mls/hr Q20H HARISH 50 mls/hr Administration Sodium Chloride 1,000 mls @ 75 mls/hr 03/15/23 09:00 03/15/23 16:23 Sodium Chloride 0.9% 1,000 Ml IV 75 mls/hr .[id number] HARISH Administration Ibuprofen 800 mg 03/15/23 02:34 03/16/23 06:30 Ibuprofen 400 Mg Tablet PO 800 mg Q8H PRN Administration Pain Labetalol HCl 200 mg 03/15/23 10:00 03/15/23 22:51 Labetalol Hcl 200 Mg Tablet PO 200 mg BID HARISH Administration Ondansetron HCl 4 mg 03/15/23 02:34 Ondansetron Pf 4 Mg/2 Ml Vial IV Q6H PRN Nausea And Vomiting Oxycodone/Acetaminophen 1 each 03/15/23 02:38 03/15/23 22:51 Oxycodone Hcl/Acetaminophen 5-325 Mg Tablet PO 1 each Q4H PRN Administration Pain Oxycodone/Acetaminophen 2 each 03/15/23 02:38 03/15/23 16:23 Oxycodone Hcl/Acetaminophen 5-325 Mg Tablet PO 2 each Q4H PRN Administration Pain Diet Category Date Time Status Regular Consistency Diet Diet 03/15/23 Breakfast Active Respiratory Lung sounds [Throughout] clear Oxygen Delivery Method Room Air Oxygen Delivery Method Room Air Oxygen Delivery Method Room Air Oxygen Delivery Method Room Air
[2023-03-16] MEDS: LABETALOL HCL 200 MG TABLET PO (08:41)
[2023-03-16 08:45] VITALS: BP 146/89; PULSE 77; RESP 16; TEMP 37.2
--- NOTE | 2023-03-16 10:35 | PM.OBDS ---
DS: Providers Provider Date of admission: 03/15/23 02:16 Primary care physician: Shawn Fountain MD Admitting clinician: Umesh Maya Attending physician on discharge: Jana Moses Anticipated date of discharge: 03/16/23 DS: Diagnosis Discharge Diagnosis (1) hypertension: Onset Date: 02/2023 Assessment and plan: THIS PATIENT PRESENTED BACK TO [facility] A FEW DAYS AFTER DISCHARGE FROM CS WITH COMPLAINT OF HEADACHE. HER BLOOD PRESSURE WAS FOUND TO BE ELEVATED IN ED. SHE WAS ADMITTED TO [facility] FOR FURTHER EVALUATION AND MANAGEMENT. MAGNESIUM 2 G BOLUS FOLLOWED BY 2 GM PER HOUR STARTED. CMP WAS NORMAL, PLATELETS WERE NORMAL, SHE WAS NOT HEMOCONCENTRATED, LFT'S WERE NORMAL, AND URINE P:C RATIO WAS NORMAL. THE MAGNESIUM WAS STOPPED AFTER 24 HOURS. SHE HAD ALSO BEEN STARTED ON LABETALOL UPON ADMISSION TO [facility]: 200 MG PO BID. HER REFLEXES ARE BRISK BUT NOT HYPERREFEXIVE. HER HEADACHE TODAY IS GONE AND HER BLOOD PRESSURE HAVE BEEN WELL CONTROLLED IN THE 140'S/80 - 90'S ON LABETALOL. THIS MAY EITHER BE PIH OR CHRONIC HYPERTENSION NOT RECOGNIZED PRIOR. Plan DISCHARGE TO HOME. FOLLOW UP IN ONE WEEK FOR INCISION CHECK AND BLOOD PRESSURE CHECK. OB - DS: Summary Hospital Course Hospital Course: UNCOMPLICATED COURSE DURING EVALUATION AND MANAGEMENT FOR PIH S/P CS DELIVERY.....ELECTIVE FOR FAILED INDUCTION Time spent discussing smoking cessation with patient: 3 to 10 minutes Peripartum Data - Procedures: SCHEDULED CS FOR FAILED INDUCTION Complications complications: none Delivery method: elective section (S/P FAILED INDUCTION) Discharge plan: home Status at Discharge Cognitive/behavioral status at discharge: NORMAL Functional status at discharge: independent ambulation Overall status at discharge: patient is back to baseline Time Spent with Patient Time attestation: Total time spent providing and/or coordinating discharge services: Time spent: less than 30 minutes Specific discharge activities: MAINTAIN PRIOR DISCHARGE INSTRUCTIONS S/P ELECTIVE CS Exam Narrative Exam Narrative: CLINICAL EXAM NONFOCAL EXCEPT THE TWO STERI STRIPS WERE APPLIED TO MID PORTION OF INCISION SKIN ONLY HAD . THE INCISION IS OTHERWISE NOT ERYTHEMATOUS DRY AND INTACT Constitutional Vital Signs, click to edit/add: Last Vital Signs Temp 98.9 F 03/16/23 08:45 Pulse 77 03/16/23 08:45 Resp 16 03/16/23 08:45 BP 146/89 H 03/16/23 08:45 Pulse Ox 98 03/15/23 00:40 O2 Del Method Room Air 03/16/23 08:45 Documenting provider has reviewed patient's vital signs: yes Common normals: no apparent distress, oriented x3, no limitations, healthy appearing and alert General appearance: cooperative, comfortable and well kempt HENMT Common normals: normocephalic and head/scalp atraumatic Eye Common normals: PERRL Pupil: accommodation reflex normal Neck & C-Spine Common normals: full ROM and supple Respiratory Common normals: normal respiratory effort Auscultation: clear to auscultation bilaterally Cardio Common normals: regular rate and regular rhythm GI Common normals: Normal to inspection, nondistended, normoactive bowel sounds present, soft to palpation and non-tender Common normals: no CVA tenderness Extremity Common normals: normal to inspection, full ROM, no calf tenderness and no pedal edema Neuro Common normals: oriented x3 and CN's II-XII intact bilaterally Sensorium/orientation: awake, alert, oriented to person, oriented to place and oriented to time Psych Common normals: mental status grossly normal, thought process normal, cooperative, affect normal and speech normal DS: Data Data Completed and Pending Labs on day of discharge: Labs from last 24 hours 03/15/23 00:55 Ur Random Creatinine 170.62 U Random Total Protein 30.6 H Protein/Creatinin Ratio 0.18 Discharge Plan Discharge Disposition: Home, Self-Care (OBS FBC) Condition: Good Assessment: S/P READMISSION S/P CS AFTER FAILED INDUCTION FOR PIH. BLOOD PRESSURE WELL CONTROLLED ON LABETALOL. HEADACHE RESOLVED. ABLE TO PERFORM ADL'S. VOICING NO COMPLAINTS. CLINICAL EXAM NONFOCAL. NO HYPERREFLEXIA OR EPIGASTRIC PAIN OR VISUAL ABNORMALITIES. Plan of Treatment: FOLLOW UP WITHIN WEEK FOR BLOOD PRESSURE CHECK AND INCISION CHECK. MAINTAIN INSTRUCTIONS FROM DISCHARGE AFTER CS. Discharge Medications: No Action ibuprofen 800 mg tablet 800 mg PO Q8H PRN (Reason: pain) 14 Days Qty: 40 0RF oxycodone-acetaminophen [Percocet] 5-325 mg tablet 1 tab PO Q6H PRN (Reason: pain) 7 Days Qty: 28 0RF labetalol 200 mg tablet 200 mg PO Q12H Patient Instructions: Hypertension During (GEN)
== END 2023-03-16 11:55 | disposition home or self-care (01) ==
LOC: ER 03-15 02:05 → FBC 03-15 02:16
PROVIDERS: Admitting Provider Obstetrics & Gynecology; Emergency Provider Emergency Medicine; PCP Family Medicine; Visit Provider Obstetrics & Gynecology
DX: O16.5 Unspecified maternal hypertension, complicating the puerperium (principal)
CPT/HCPCS: 36415; 80053; 81001; 82570; 84156; 85025; 85610; 85730; 87086; 93005; 96374; 96375; 96376; 99285; G0378

== ENCOUNTER 2023-10-22 11:36 | Outpatient (OUT) | payer BC, OTHER, SELFPAY ==
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
--- NOTE | 2023-10-22 11:45 | XR_ITS ---
The [address] [address] Patient Name: REJI TOTH MRN: [id number] date: 2000 Sex: F Assigned Patient Location: [facility] Current Patient Location: RAD Accession/Order Number: [id number] Exam Date: 10/22/2023 11:50 Report Date: 10/22/2023 13:23 At the request of: SHAIKH MERCEDEZ Procedure: XR ribs BI min 4V w CXR1V EXAMINATION: XR ribs BI min 4V w CXR1V HISTORY: Chest Wall Pain R7.89 COMPARISON: No relevant comparison available. FINDINGS: LUNGS: No significant pulmonary parenchymal abnormalities. PLEURA: No pneumothorax. Small right pleural effusion MEDIASTINUM: No visible mass or adenopathy. CARDIAC: No cardiomegaly or cardiac silhouette abnormality. RIBS: No acute rib fracture OTHER: Negative. XR/XR ribs BI min 4V w CXR1V IMPRESSION: Small right pleural effusion No acute rib fracture Electronically authenticated by: RAMONA REYES Date: 10/22/2023 13:23
== END 2023-10-22 11:37 | disposition home or self-care (01) ==
LOC: RAD 11:40
PROVIDERS: PCP Family Medicine; Visit Provider Internal Medicine
DX: R07.89 Other chest pain (principal); S13.4XXA Sprain of ligaments of cervical spine, initial encounter; J90 Pleural effusion, not elsewhere classified
CPT/HCPCS: 71111; 72040

== ENCOUNTER 2023-11-12 15:13 | Outpatient (RCR) | payer BC, OTHER, SELFPAY | END 2024-01-09 12:17 | disposition home or self-care (01) | LOC: PT 15:13 | PROVIDERS: PCP Family Medicine; Visit Provider Internal Medicine | DX: M54.6 Pain in thoracic spine (principal); R07.89 Other chest pain; M25.511 Pain in right shoulder; S13.4XXD Sprain of ligaments of cervical spine, subsequent encounter | CPT/HCPCS: 97110; 97162 ==